=== PATIENT | male | born 1995 | race Two or more races ===

== ENCOUNTER 2017-05-30 11:05 | Emergency (ER) | payer SELFPAY ==
[2017-05-30 11:08] VITALS: BP 144/83; BMI 25.0
[2017-05-30] MEDS ORDERED: XYLOCAINE 1% and EPINEPHRINE 1:100,000 IM ONE (11:14)
--- NOTE | 2017-05-30 11:14 | DR.LACERAT ---
HPI - Time Seen Time seen: 11:11 - Primary Care Physician Primary Care Physician: NFD - Complaints Chief Complaint:: CUT RIGHT HAND ON A PIECE OF METAL - Reviewed Nurses Notes Reviewed: Yes - Source History Provided: Patient - Mode of Arrival Mode of Arrival: Ambulatory - Timing Onset of Chief Complaint: 05/30/17 - Context Mechanism: Metal Tetanus Vaccination: Yes - Severity Pain Severity: Moderate Bleeding:: Controlled - Associated Signs and Symptoms Associated Signs and Symptoms: None PMH - PMH Past Medical History: No Past Surgical History: No Surgical History: No History - Family History History of Family Medical Conditions: No - Social History Does patient currently use any type of tobacco product: Yes Have you used tobacco products in the last 12 months: Yes Type of Tobacco Use: Cigarettes Does any household member use tobacco: No Alcohol Use: Occasionally Do you use any recreational Drugs:: No Lives With: Spouse Lives Where: Home - infectious screening In the last 2 months have you had wt loss of >10#?: NO Have you had fever, night sweats or hemotysis?: No Have you traveled outside the country in the last 6 months?: No Isolation: Standard ROS - Review of Systems Constitutional: No Symptoms Reported Eyes: No Symptoms Reported ENTM: No Symptoms Reported Respiratoy: No Symptoms Reported Cardiovascular: No Symptoms Reported Gastrointestinal/Abdominal: No Symptoms Reported Genitourinary: No Symptoms Reported Neurological: No Symptoms Reported Musculoskeletal: Hand (right hand pain) Integumentary: Wound (dorsal hand) Hematologic/Lymphatic: No Symptoms Reported Endocrine: No Symptoms Reported PE - Vital Signs Vitals: Temperature 98 F Pulse Rate 100 Respiratory Rate 17 Blood Pressure 144/83 O2 Sat by Pulse Oximetry 96 - General Limitations: No Limitations General Appearance: Alert, In No Apparent Distress - Head Head Exam: Normal Inspection - Eyes Eye exam: Normal Appearance, EOMI. negative: Scleral Icterus, Conjunctival Injection - ENT ENT Exam: Normal Exam - Neck Neck Exam: Normal Inspection, Full ROM - Chest Chest Inspection: Normal Inspection - Respiratory Respiratory Exam: negative: Accessory Muscle Use, Respiratory Distress - Neurologic Neurological Exam: Alert, Oriented X3, CN II-XII Intact - Psychiatric Psychiatric Exam: Normal Affect - Skin Skin Exam: negative: Intact (dorsal hand 3cm cut ) Procedures - Laceration/Wound Repair Right Hand Wound Length (cm): 3 Wound's Depth, Shape: Linear Wound Explored: clean Irrigated w/ Saline (ccs): 100 Betadine Prep?: Yes Anesthesia: 1% Lidocaine w/ Epi Volume Anesthetic (ccs): 7 Wound Repaired With: sutures Suture Size/Type: 4:0, Ethilion Number of Sutures: 7 Sterile Dressing Applied?: Yes Splint Applied?: No - Diagnosis Discharge Problem: Laceration of hand Qualifiers: Encounter type: initial encounter Foreign body presence: without foreign body Laterality: right Qualified Code(s): S61.411A - Laceration without foreign body of right hand, initial encounter - Discharge Plan Condition: Stable Prescriptions: Cephalexin [KEFLEX CAP 500 MG *] 500 mg PO TID #21 cap Tramadol HCl [ULTRAM 50 MG *] 50 mg PO Q8H PRN #15 tab PRN Reason: Pain - Follow ups/Referrals Follow ups/Referrals: NFD,None [Primary Care Provider] - 3 days - Instructions
[2017-05-30] MEDS ORDERED: KEFLEX CAP 500 MG PO ONE ×2 (11:15→11:36)
[2017-05-30] MEDS ORDERED: XYLOCAINE 1% and EPINEPHRINE 1:100,000 ONE (11:20)
[2017-05-30] MEDS ORDERED: STERILE WATER IRRIGATION IR ONE (11:23)
[2017-05-30] MEDS ORDERED: ADACEL TDaP IM ONE ×2 (11:35→11:36)
== END 2017-05-30 11:55 | disposition home or self-care (01) ==
LOC: ER 11:29
PROC: 0XQJ0ZZ Repair Right Hand, Open Approach (ICD-10-PCS; principal; 2017-05-30)
DX: S61.411A Laceration without foreign body of right hand, initial encounter (principal); W45.8XXA Other foreign body or object entering through skin, initial encounter; Y92.9 Unspecified place or not applicable
CPT/HCPCS: 12002; 90471; 99282; A4217; J2001